=== PATIENT | female | born 1960 | race Two or more races ===

== ENCOUNTER 2020-11-25 09:07 | Outpatient (CLI) | payer BC | END 2020-11-25 23:59 | disposition home or self-care (01) | LOC: US 09:07 | PROVIDERS: ATTEND Obstetrics & Gynecology | DX: D25.2 Subserosal leiomyoma of uterus (principal); R93.89 Abnormal findings on diagnostic imaging of other specified body structures | CPT/HCPCS: 76856-TC ==

== ENCOUNTER 2022-03-03 09:26 | Emergency (ER) | payer BC, OTHER ==
[~2022-03-03] VITALS: Ht 170.2 cm; Wt 95.3 kg
[2022-03-03 09:39] VITALS: BP 135/75
[2022-03-03] MEDS ORDERED: KETO10TA2 PO (09:46)
[2022-03-03] MEDS ORDERED: CYCL5TAB PO (09:46)
--- NOTE | 2022-03-03 09:57 | NUR ---
Patient discharged to home in stable condition. Written and verbal after care instructions given. Patient verbalizes understanding of instruction.
== END 2022-03-03 10:37 | disposition home or self-care (01) ==
LOC: ER 09:41
DX: S13.4XXA Sprain of ligaments of cervical spine, initial encounter (principal); Z79.899 Other long term (current) drug therapy; V43.92XA Unspecified car occupant injured in collision with other type car in traffic accident, initial encounter; Y93.89 Activity, other specified; Y92.89 Other specified places as the place of occurrence of the external cause; Y99.8 Other external cause status

== ENCOUNTER 2024-09-24 12:38 | Emergency (ER) | payer BC, OTHER ==
[~2024-09-24] VITALS: Ht 167.6 cm; Wt 95.3 kg
[~2024-09-24 12:38] MED LIST: CYCL5TAB PO; KETO10TA2 PO
[2024-09-24] MEDS: LIDOCAINE 5% OINT 35.44 GM TUBE TP ONE (14:50)
[2024-09-24] MEDS ORDERED: ACETAMINOPHEN 325 MG TABLET PO ONE (15:00)
[2024-09-24] MEDS ORDERED: HYDROCODONE/APAP 5/325MG TABLET ONE (15:34)
[2024-09-24] MEDS: HYDROCODONE/APAP 5/325MG TABLET PO ONE (15:35)
[2024-09-24] MEDS: BACI/NEOM/POLY B OINT PKT 1 UDPKT PACKET TP ONE (16:00)
[2024-09-24] MEDS ORDERED: MUPI15CR TP (16:12)
[2024-09-24] MEDS ORDERED: CEPH-570 PO (16:12)
[2024-09-24] MEDS ORDERED: HYDR-4275 PO (16:12)
[2024-09-24 16:40] VITALS: BP 144/80; TEMP 98.2; O2SAT 98
== END 2024-09-24 16:40 | disposition home or self-care (01) ==
LOC: ER 12:42
DX: L02.416 Cutaneous abscess of left lower limb (principal); L73.8 Other specified follicular disorders; Z79.899 Other long term (current) drug therapy
CPT/HCPCS: 99283; 10060; A6403; A6407

== ENCOUNTER 2025-02-24 18:01 | Emergency (ER) | payer BC, OTHER ==
[~2025-02-24] VITALS: Ht 170.2 cm; Wt 96.6 kg
[~2025-02-24 18:01] MED LIST changes: +CEPH-570 PO; +HYDR-4275 PO; +MUPI15CR TP
[2025-02-24 18:15] VITALS: TEMP 98
[2025-02-24] MEDS: ACETAMINOPHEN ES 500 MG TABLET PO ONE (20:04)
[2025-02-24] MEDS: IBUPROFEN 400 MG TABLET PO ONE (20:04)
[2025-02-24] MEDS ORDERED: ACETAMINOPHEN ES 500 MG TABLET ONE (20:04)
[2025-02-24] MEDS ORDERED: IBUPROFEN 400 MG TABLET ONE (20:04)
[2025-02-24] MEDS ORDERED: ACET-2030 PO (21:18)
[2025-02-24] MEDS ORDERED: IBUP-1957 PO (21:18)
[2025-02-24 21:21] VITALS: BP 146/84; O2SAT 98
== END 2025-02-24 21:50 | disposition home or self-care (01) ==
LOC: ER 18:07
DX: S82.891A Other fracture of right lower leg, initial encounter for closed fracture (principal); Z79.891 Long term (current) use of opiate analgesic; W10.9XXA Fall (on) (from) unspecified stairs and steps, initial encounter; Y93.89 Activity, other specified; Y92.89 Other specified places as the place of occurrence of the external cause; Y99.9 Unspecified external cause status
CPT/HCPCS: 73080-TC; 73590-TC; 73610-TC